=== PATIENT | female | born 2000 | race African-American/Black ===

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

== ENCOUNTER 2021-01-03 11:33 | Emergency (ER) | payer MEDICAID ==
[~2021-01-03] VITALS: Ht 170.2 cm; Wt 61.2 kg
--- NOTE | 2021-01-03 11:43 | NUR ---
CALLED TO TRIAGE NO ANSWER.
[2021-01-03 11:51] VITALS: BP 94/58
--- NOTE | 2021-01-03 11:58 | NUR ---
PT SEEN AND EXAMINED BY .
[2021-01-03] MEDS ORDERED: DEXAMETHASONE 1 MG TABLET PO ONE (12:00)
[2021-01-03] MEDS ORDERED: AMOXICILLIN TRIHYDRATE 500 MG CAPSULE PO ONE (12:00)
[2021-01-03] MEDS ORDERED: AMOXICILLIN TRIHYDRATE 250 MG CAPSULE ONE (12:05)
--- NOTE | 2021-01-03 12:10 | NUR ---
PT REFUSED COVID TEST. AWARE.
--- NOTE | 2021-01-03 12:10 | NUR ---
RAPID STREP SPECIMEN OBTAINED AND SENT TO LAB.
[2021-01-03] MEDS ORDERED: IBUP-1953 PO (12:20)
[2021-01-03] MEDS ORDERED: AMOX875T2 PO (12:20)
[2021-01-03] MEDS ORDERED: DEXAMETHASONE 4 MG TABLET ONE (12:28)
[2021-01-03] MEDS ORDERED: DEXAMETHASONE 4 MG TABLET PO ONE (12:30)
[2021-01-03] MEDS ORDERED: CEFU500T66 PO (12:43)
[2021-01-03] MEDS ORDERED: diphenhydrAMINE HCL 25 MG CAPSULE ONE (12:48)
[2021-01-03] MEDS ORDERED: diphenhydrAMINE HCL ELIX 25 MG/10 ML UDC PO ONE (13:00)
--- NOTE | 2021-01-03 13:44 | NUR ---
Patient discharged to home in stable condition. Written and verbal after care instructions given. Patient verbalizes understanding of instruction.
== END 2021-01-03 13:45 | disposition home or self-care (01) ==
LOC: ER 11:37
DX: J02.0 Streptococcal pharyngitis (principal); Z88.1 Allergy status to other antibiotic agents; Z79.899 Other long term (current) drug therapy
CPT/HCPCS: 87880; 99284; J8540; Q0163; 86403-TC

== ENCOUNTER 2025-02-11 00:54 | Emergency (ER) | payer MEDICAID ==
[~2025-02-11 00:54] MED LIST: CEFU500T66 PO; IBUP-1953 PO
== END 2025-02-11 01:58 | disposition left against medical advice (07) ==
LOC: ER 01:00
DX: Z48.00 Encounter for change or removal of nonsurgical wound dressing (principal); Z53.21 Procedure and treatment not carried out due to patient leaving prior to being seen by health care provider